=== PATIENT | male | born 1970 | race Caucasian/White ===

== ENCOUNTER 2024-05-06 14:30 | Emergency (ER) | payer MEDICAID, SELFPAY ==
--- NOTE | ~2024-05-06 | CT_ITS ---
EXAMINATION: CT chest w IV con, CT abdomen pelvis w IV con CLINICAL INFORMATION: fall chest trauma abd trauma fall elevated bili COMPARISON: No pertinent prior studies are available for comparison. TECHNIQUE: Multidetector volumetric imaging was performed through the chest, abdomen and pelvis following the administration of 85 mL of Omnipaque 350 intravenous contrast. Sagittal and coronal reformatted images were obtained on the technologist's workstation. Axial MIP volume rendering provided. This CT examination was performed using dose optimization techniques as appropriate, variously including the following: * Automated exposure control * Adjustment of mA and/or kV according to patient size (this includes techniques or standardized protocols for targeted exams where dose is matched to indication/reason for exam; i.e. extremities or head) Use of iterative reconstruction technique DLP: 1280 mGy-cm FINDINGS: CHEST: LUNGS: The central airways are patent. The lungs are clear with no evidence of consolidation. Dependent bibasilar atelectasis. No pleural effusion or pneumothorax. There are no pulmonary parenchymal nodules. MEDIASTINUM: Cardiomegaly without pericardial effusion. Mild coronary arterial calcifications. Central vascular structures are unremarkable. Normal thyroid. No hilar or mediastinal lymphadenopathy. CHEST WALL: No lymphadenopathy. No chest wall mass. Bilateral gynecomastia. ABDOMEN/PELVIS: LIVER, GALLBLADDER, BILIARY TREE: The liver has a nodular contour and is diffusely hypoattenuating relative to spleen. Hepatomegaly measuring up to 21 cm) nuchal dimension. No focal hepatic lesion or biliary ductal dilatation is present. The gallbladder is unremarkable with no evidence of radiopaque gallstones, gallbladder wall thickening, or obvious pericholecystic inflammatory changes. PANCREAS: Normal; no mass or surrounding fluid. SPLEEN: Normal size. No focal lesion. ADRENAL GLANDS: Normal; no mass. KIDNEYS AND URETERS: The kidneys are normal in size, shape, and attenuation. No hydronephrosis, hydroureter, or calculi seen. No perinephric stranding. BLADDER: No focal mass or wall thickening seen. No bladder calculi. PELVIC VISCERA: Normal CT appearance of the prostate and seminal vesicles. GASTROINTESTINAL TRACT: Small hiatal hernia. The small and large bowel are nondilated. Normal appendix. PERITONEAL SPACE: No significant free air or free fluid identified. ABDOMINAL WALL: No significant hernia is appreciated. LYMPHOVASCULAR STRUCTURES: Lymph nodes: Normal. Vascular: The aorta is normal in caliber. OSSEOUS STRUCTURES: No acute or suspicious osseous abnormality. Mild multilevel thoracal lumbar spondylosis. CT/CT abdomen pelvis w IV con IMPRESSION: 1. No acute traumatic injury to the chest, abdomen or pelvis. 2. Hepatomegaly with nodular contour and hypoattenuating liver. These findings taken together suggestive of infiltrative hepatocellular disease such as cirrhosis and/or steatosis.
--- NOTE | ~2024-05-06 | XR_ITS ---
EXAMINATION: XR ELBOW, RIGHT CLINICAL INFORMATION: Right elbow pain. COMPARISON: None available. TECHNIQUE: AP, lateral, and oblique views of the right elbow. FINDINGS: The study is somewhat limited, as no true lateral view is submitted. The bones and soft tissues appear grossly. No fracture or gross joint effusion appreciated. Alignment is anatomic. Joint spaces appear maintained. XR/XR elbow RT 2V IMPRESSION: No acute finding.
--- NOTE | ~2024-05-06 | CT_ITS ---
EXAMINATION: CT HEAD WITHOUT CONTRAST CLINICAL INFORMATION: Fall head strike COMPARISON: MRI brain from 06/09/2014 TECHNIQUE: Contiguous axial imaging was performed from the skull base to vertex without intravenous administration of contrast. This CT examination was performed using dose optimization techniques as appropriate, variously including the following: *Automated exposure control *Adjustment of mA and/or kV according to patient size (this includes techniques or standardized protocols for targeted exams where dose is matched to indication/reason for exam; i.e. extremities or head) *Use of iterative reconstruction technique DLP: 742.18 mGy-cm FINDINGS: There is no evidence of acute intracranial hemorrhage or territorial infarction. No abnormal mass effect or midline shift is seen. Feng to white matter differentiation is well preserved. No extra-axial fluid collections are identified. The ventricles are normal in size. There is no abnormal attenuation within the brain parenchyma. The osseous structures and soft tissues are normal. The mastoid air cells and visualized portions of the paranasal sinuses are well aerated. CT/CT cervical spine wo IV con IMPRESSION: No acute intracranial pathology. EXAMINATION: Noncontrast CT scan of the cervical spine. INDICATION: Neck pain COMPARISON: None. TECHNIQUE: Helical, multidetector axial images were obtained from the occiput to the upper thorax. Coronal and sagittal reformats of the cervical spine were provided for interpretation. DLP: 596.7 mGy-cm FINDINGS: No acute fractures or dislocations of the cervical spine are seen. Straightening with slight reversal of the normal cervical curvature. Multilevel degenerative changes. Anatomic alignment and positioning of the vertebral bodies and posterior elements is noted. The atlantoaxial joint and craniovertebral articulations are normal without evidence of subluxation. There is no prevertebral soft tissue swelling. The thyroid gland and visualized portions of the lung apices and mediastinum are unremarkable. IMPRESSION: 1. No acute visible fracture or dislocation. 2. Straightening with slight reversal of the normal cervical curvature. 3. Multilevel degenerative changes.
[2024-05-06 14:34] VITALS: BP 131/84; PULSE 92; O2SAT 94
[2024-05-06 14:44] VITALS: BP 144/81; PULSE 88; RESP 16; TEMP 36.8; O2SAT 94; BMI 38.7
[2024-05-06 15:09] LABS: MANUAL DIFF FLAG NO
[2024-05-06 15:13] LABS: Appearance Urine Clear; Color Urine Yellow; Glucose Urine UA Negative (Negative); Leukocyte Esterase Urine Negative (Negative); Nitrite Urine Negative (Negative); Specific Gravity - Urine <= 1.005 (1.005-1.025); Urine Blood Negative (Negative); Urine Ketones Negative (Negative); Urine Protein Negative (Neg-Trace)
[2024-05-06 15:14] LABS: Basophils Absolute Auto 0.1 X10*3/uL (0.0-0.2); Basophils Percent Auto 0.5 % (0-2); Eosinophils Absolute Auto 0.1 X10*3/uL (0.0-0.4); Eosinophils Percent Auto 1.4 % (0-4); Hematocrit 44.5 % (42.0-52.0); Hemoglobin 15.4 g/dl (14.0-18.0); Imm Gran Abs Auto 0.03 X10*3/uL (0.00-0.03); Imm Gran Pct Auto 0.3 % (0.0-0.4); Lymphocytes Absolute Auto 2.7 X10*3/uL (1.2-4.9); Lymphocytes Percent Auto 27.1 % (20-40); Mean Corpuscular HGB Conc 34.6 g/dl (31.0-36.0); Mean Corpuscular Hemoglobin 29.3 pg (27.0-33.0); Mean Corpuscular Volume 84.6 fL (80.0-98.0); Monocytes Absolute Auto 0.7 X10*3/uL (0.1-1.2); Neutrophils Absolute Auto 6.3 x10*3/uL (2.0-8.3); Neutrophils Percent Auto 63.7 % (45-73); Platelet Count 278 X10*3/uL (160-400); Red Blood Count 5.26 X10*6/uL (4.60-5.80); Red Cell Distribution Width 14.3 % (11.0-16.0)
[2024-05-06 15:16] LABS: Prothrombin Time 12.6 SEC (11.1-13.3)
[2024-05-06 15:27] LABS: Amphetamine Screen Urine Not Detected (Not Detect); Barbiturates, Urine Not Detected (Not Detect); Benzodiazepines Screen Urine Not Detected (Not Detect); Buprenorphine Scr Not Detected (Not Detect); Cannabinoid Screen Urine Not Detected (Not Detect); Cocaine Screen Urine Not Detected (Not Detect); Fentanyl, urine Not Detected (Not Detect); Methadone Screen, Urine Not Detected (Not Detect); Opiate Screen Urine Not Detected (Not Detect); Oxycodone Screen Urine Not Detected (Not Detect); Phencyclidine Screen Urine Not Detected (Not Detect)
[2024-05-06 15:29] LABS: Ethanol 306 mg/dL
[2024-05-06 15:34] LABS: Alanine Aminotransferase 29 U/L (0-40); Albumin Level 4.4 g/dL (3.5-5.0); Alkaline Phosphatase 83 U/L (39-117); Anion Gap 20 (12-20); Aspartate Amino Transferase 46 U/L (5-37); Bilirubin Total 2.3 mg/dL (0.0-1.0); Blood Urea Nitrogen 8 mg/dL (9-16); Calcium 9.6 mg/dL (8.4-10.2); Carbon Dioxide 22 mmol/L (22-29); Chloride 105 mmol/L (96-108); Creatinine Clr Calc Pharmacy 142.2; Estimated Glomerular Filt Rate > 60; Glucose Random 108 mg/dL (60-115); Potassium 3.2 mmol/L (3.3-5.1); Sodium 144 mmol/L (135-145); Total Protein 7.5 g/dL (6.5-8.0)
--- NOTE | 2024-05-06 15:50 | PC.NURSE ---
RN heard pt attempting to remove c-collar. educated in importance of maintaining c-collar placement until eval'd by provider.
--- NOTE | 2024-05-06 16:15 | PC.NURSE ---
pt found with c-collar off in bed, pt refused to have c-collar placed back on.
[2024-05-06 17:15] LABS: Magnesium 1.8 mg/dL (1.6-2.6)
--- NOTE | 2024-05-06 17:17 | ED_ITS ---
HPI - Fall General Chief Complaint: Fall Stated Complaint: FALL,ELBOW LAC,ETOH INTOX PER EMS Time Seen by Provider: 05/06/24 16:58 Source: patient Mode of arrival: ambulatory Limitations: no limitations History of Present Illness ED Provider: Jeanie CRONIN HPI Narrative: 54-year-old male history of alcohol abuse, frequent falls secondary to alcohol abuse presenting to the emergency department with alcohol intoxication and fall, unclear history however patient tells me he has been drinking multiple pt of vodka per day last drink was just prior to arrival. He fell today initially said he hit his head now he states he does not think he did. He is not on blood thinners. Patient reports he also hit his right elbow and has a scrape on his elbow. Unclear if tetanus status. Patient reports he just feels overall unwell and tired. He would like to go home. No SI or HI. Not interested in detox. Denies chest pain, shortness of breath, nausea, vomiting, abdominal pain, headache, vision changes, dizziness and weakness GCS-15 NIHSS- 0 Related Data Allergies Allergy/AdvReac Type Severity Reaction Status Date / Time No Known Allergies Allergy Verified 05/06/24 14:46 [No Known Allergies*] Review of Systems 2 Review of Systems: Yes all other systems are reviewed and are negative PMFSH Past Medical History Attestation statement: The following information was validated with the patient. Source: old records reviewed and nursing notes reviewed Social History Social History Advance Directives: No Physical Exam 2 Vital Signs: Vital Signs: Last Vital Signs Temp 98.1 F 05/06/24 19:03 Pulse 78 05/06/24 19:03 Resp 18 05/06/24 19:03 BP 135/69 05/06/24 19:03 Pulse Ox 96 05/06/24 19:03 O2 Del Method Room Air 05/06/24 19:03 BMI result Body Mass Index 38.7 vss Appearance: Alert.? Oriented X3.? No acute distress.? Head: Normocephalic, atraumatic, no step-offs or deformities Eyes: Pupils equal, round and reactive to light.? ENT: Pharynx normal.? Neck: Normal inspection.? Neck supple.? CVS: Normal heart rate and rhythm.? Pulses normal.? Respiratory: No respiratory distress.? Breath sounds normal.? Abdomen: Soft and nontender.? Skin: Skin warm and dry.? Normal skin color.? Normal skin turgor.? + abrasion overlying right elbow. Full range of motion to the elbow. No wrist drop bilaterally. Normal sensation distally. Normal capillary refill less than 2 seconds. Extremities: No lower extremity edema.? No calf ttp. 5/5 strength to bilateral upper and lower extremities Back: No midline tenderness, no C-spine tenderness, full range of motion, no CVA tenderness bilaterally Neuro: Oriented X 3.? No motor deficit.? No sensory deficit. CN 2-12 intact Course Reevaluation(s) Reevaluation #1: CBC unremarkable. Chemistry with low potassium 3.2 oral potassium ordered. Normal magnesium. Total bilirubin 2.3, no abdominal tenderness on palpation, this could be secondary to chronic alcohol abuse. Slightly elevated AST again likely secondary to alcohol abuse. Total CPK 996, IV fluids ordered. Will repeat this value. UA negative. Urine toxicology negative. Ethanol level 306. X-ray of right elbow no acute findings. CT chest with no acute traumatic injury to chest, abdomen or pelvis. Hepatomegaly with nodular contour and hypoattenuating liver these findings are concerning for infiltrative hepatocellular disease such as cirrhosis and or steatosis. Patient will be made aware of these findings. CT head with no acute intracranial pathology. CT cervical spine no acute fracture dislocations. Straightening with slight reversal of normal cervical lordosis. Multilevel degenerative changes. Repeat CPK pending Time: 20:29 Reevaluation #2: Repeat CPK improved at 142 after few L of fluids, no renal failure. No indication for hospital admission. Will give another L fluids. No indication for repeat CPK encouraged p.o. hydration. At this time patient to be placed into observation to allow more time to be evaluated by care team for possible detox opportunities. At time observation was started patient common cooperative no acute distress will continue to monitor. Time: 22:29 Medications Administered Discontinued Medications Generic Name Dose Route Start Last Admin Trade Name Freq PRN Reason Stop Dose Admin Bacitracin 1 appl 05/06/24 17:05 05/06/24 18:08 Bacitracin Oint 0.9 Gm Packet TOPICAL 05/06/24 17:06 1 appl ONCE ONE Administration Protocol Diphtheria/Tetanus/Acell Pertussis 0.5 ml 05/06/24 17:05 05/06/24 17:25 Diphth,Pertus(Acell),Tet Adult 0.5 Ml Syringe IM 05/06/24 17:06 Not Given .ONCE ONE Sodium Chloride 1,000 mls @ 999 mls/hr 05/06/24 18:15 05/06/24 21:00 Ns IV 05/06/24 19:15 Infused .Q1H1M CHEO Infusion Sodium Chloride 1,000 mls @ 999 mls/hr 05/06/24 20:30 05/06/24 21:31 Ns IV 05/06/24 21:30 999 mls/hr .Q1H1M CHEO Administration Iohexol 100 ml 05/06/24 18:39 05/06/24 18:39 Iohexol 350 Mg/Ml 100 Ml Infus..Btl IV 05/06/24 18:40 85 ml ONCE ONE Administration Potassium Chloride 20 meq 05/06/24 20:29 05/06/24 21:37 Potassium Chloride Er 20 Meq Tab.Er.Prt PO 05/06/24 20:30 20 meq ONCE ONE Administration Medical Decision Making Medical Decision Making [facility] Narrative: 1700 54 yo m presents w/ ETOH & fall [employer]IVE drinking few pints of vodka. PE + abrasion overlying right elbow. Full range of motion to the elbow. No wrist drop bilaterally. Normal sensation distally. Normal capillary refill less than 2 seconds. A&O X 4. History and physical exam concerning for alcohol intoxication with fall. No signs of active withdrawal. Will rule out metabolic derangements. Will rule out traumatic injury to head and neck. Unlikely trauma to chest, abd or pelvis. NIHSS-0 , GCS-15 Plan- labs, imaging, utox, sow Differential Diagnosis Differential Diagnoses: The differential diagnosis associated with the presentation includes History and physical exam concerning for alcohol intoxication with fall. No signs of active withdrawal. Will rule out metabolic derangements. Will rule out traumatic injury to head and neck. Unlikely trauma to chest, abd or pelvis. Admission/Observation Consideration of admission/observation: Escalation of care including admission/observation considered Lab Data [facility] Lab Attestation statement: I reviewed the patient's lab results. 05/06/24 15:04 05/06/24 22:03 Labs: Lab Results 05/06/24 05/06/24 Range/Units 15:04 22:03 WBC 10.0 (4.8-10.8) X10*3/uL RBC 5.26 (4.60-5.80) X10*6/uL Hgb 15.4 (14.0-18.0) g/dl Hct 44.5 (42.0-52.0) % MCV 84.6 (80.0-98.0) fL MCH 29.3 (27.0-33.0) pg MCHC 34.6 (31.0-36.0) g/dl RDW 14.3 (11.0-16.0) % Plt Count 278 (160-400) X10*3/uL MPV 9.0 L (9.4-12.4) fL Immature Gran % (Auto) 0.3 (0.0-0.4) % Neut % (Auto) 63.7 (45-73) % Lymph % (Auto) 27.1 (20-40) % Thomas % (Auto) 7.0 (2-11) % Eos % (Auto) 1.4 (0-4) % Baso % (Auto) 0.5 (0-2) % Lymph # (Auto) 2.7 (1.2-4.9) X10*3/uL Thomas # (Auto) 0.7 (0.1-1.2) X10*3/uL Eos # (Auto) 0.1 (0.0-0.4) X10*3/uL Baso # (Auto) 0.1 (0.0-0.2) X10*3/uL Abs Immat Gran (auto) 0.03 (0.00-0.03) X10*3/uL Absolute Neuts (auto) 6.3 (2.0-8.3) x10*3/uL Absolute Nucleated RBC 0.000 (0.0-0.012) X10*3/uL Nucleated RBC % (auto) 0.0 (0.0-0.2) /100WBC PT 12.6 (11.1-13.3) SEC INR 1.0 (0.9-1.1) Sodium 144 145 (135-145) mmol/L Potassium 3.2 L 3.5 (3.3-5.1) mmol/L Chloride 105 108 (96-108) mmol/L Carbon Dioxide 22 22 (22-29) mmol/L Anion Gap 20 19 (12-20) BUN 8 L 6 L (9-16) mg/dL Creatinine 0.77 0.74 (0.5-1.4) mg/dL Estim Creat Clear Calc 142.2 148.0 Estimated GFR > 60 > 60 Random Glucose 108 92 (60-115) mg/dL Calcium 9.6 8.6 D (8.4-10.2) mg/dL Magnesium 1.8 (1.6-2.6) mg/dL Total Bilirubin 2.3 H (0.0-1.0) mg/dL AST 46 H (5-37) U/L ALT 29 (0-40) U/L Alkaline Phosphatase 83 (39-117) U/L Total Creatine Kinase 996 H 842 H (38-174) U/L Total Protein 7.5 (6.5-8.0) g/dL Albumin 4.4 (3.5-5.0) g/dL Urine Color Yellow Urine Appearance Clear Urine pH 6.0 (5.0-9.0) Ur Specific [place] <= 1.005 (1.005-1.025) Urine Protein Negative (Neg-Trace) mg/dL Urine Glucose (UA) Negative (Negative) mg/dL Urine Ketones Negative (Negative) mg/dL Urine Blood Negative (Negative) Urine Nitrite Negative (Negative) Ur Leukocyte Esterase Negative (Negative) Urine Opiates Screen Not Detected (Not Detect) Ur Buprenorphine Scrn Not Detected (Not Detect) ng/mL Ur Oxycodone Screen Not Detected (Not Detect) ng/mL Urine Methadone Screen Not Detected (Not Detect) ng/mL Urine Fentanyl Screen Not Detected (Not Detect) Ur Barbiturates Screen Not Detected (Not Detect) Ur Phencyclidine Scrn Not Detected (Not Detect) Ur Amphetamines Screen Not Detected (Not Detect) U Benzodiazepines Scrn Not Detected (Not Detect) Urine Cocaine Screen Not Detected (Not Detect) U Marijuana (THC) Screen Not Detected (Not Detect) Ethyl Alcohol 306 H* mg/dL Independent Interpretation I performed an independent interpretation of an: EKG and CT Scan Radiology Impression Discussion of test interpretation with radiology: I have reviewed the radiologist's reading. Critical Care Time Critical Care Time Critical Care Time: Yes Total Critical Care Time: 35 Attestation: I attest to this time spent taking care of the patient, obtaining history, physical, reviewing labs, imaging, speaking to my attending, specialist or hospitalist. Discharge Plan Discharge Clinical Impression: Fall, Rhabdomyolysis, Alcohol abuse, Hypokalemia, Liver disease Patient Disposition: Home, Self-Care Instructions: Liver Disease Diet (DC), Hypokalemia (ED), Rhabdomyolysis (ED), Abuse of Alcohol (DC), Liver Resection (DC), Fall Prevention (ED) Additional Instructions: Take your medications as prescribed. If you were prescribed antibiotics today, it is important that you take your medication to their entirety, do not skip any doses, do not finish them early. Follow-up with your primary care provider this week. Return to the emergency department with new or worsening symptoms. Such as fevers, chills, chest pain, shortness of breath, nausea, vomiting, dizziness, headache, vision changes, lethargy In case of emergency call 911 XR/XR elbow RT 2V IMPRESSION: No acute finding. CT/CT chest , abd/pelvis w IV con IMPRESSION: 1. No acute traumatic injury to the chest, abdomen or pelvis. 2. Hepatomegaly with nodular contour and hypoattenuating liver. These findings taken together suggestive of infiltrative hepatocellular disease such as cirrhosis and/or steatosis. CT/CT head/brain & cervical spine wo IV con IMPRESSION: No acute intracranial pathology. IMPRESSION: 1. No acute visible fracture or dislocation. 2. Straightening with slight reversal of the normal cervical curvature. 3. Multilevel degenerative changes. Referrals: [facility] [place] [facility] [Provider Group] - 1 day Melo Armendariz MD [Primary Care Provider] - 2 days Print Language: Turkish
[2024-05-06 17:55] VITALS: BP 135/69; PULSE 78; RESP 18; TEMP 36.7; O2SAT 96
[2024-05-06] MEDS: Bacitracin Oint 0.9 GM PACKET 1 APPL TOPICAL (18:08)
[2024-05-06] MEDS: iohexoL 350 MG/ML 100 ML INFUS..BTL IV (18:39)
[2024-05-06] MEDS: 0.9 % Sodium Chloride 1,000 ML 999 ML IV ×3 (18:46→23:00)
[2024-05-06 19:03] VITALS: BP 135/69; PULSE 78; RESP 18; TEMP 36.7; O2SAT 96
[2024-05-06] MEDS: Potassium Chloride ER 20 MEQ TAB.ER.PRT PO (21:37)
[2024-05-06 22:25] LABS: Anion Gap 19 (12-20); Blood Urea Nitrogen 6 mg/dL (9-16); Calcium 8.6 mg/dL (8.4-10.2); Carbon Dioxide 22 mmol/L (22-29); Chloride 108 mmol/L (96-108); Estimated Glomerular Filt Rate > 60; Glucose Random 92 mg/dL (60-115); Potassium 3.5 mmol/L (3.3-5.1); Sodium 145 mmol/L (135-145)
[2024-05-06 22:48] VITALS: BP 140/73; PULSE 67; RESP 15; TEMP 36.6; O2SAT 95
[2024-05-06] MEDS: LORazepam 1 MG TABLET 2 MG PO (23:00)
[2024-05-07 02:46] VITALS: BP 137/70; PULSE 86; RESP 16; TEMP 36.6; O2SAT 97
[2024-05-07] MEDS: Omeprazole 40 MG CAPSULE.DR PO (06:43)
[2024-05-07 06:44] VITALS: BP 156/78; PULSE 76; RESP 16; TEMP 36.7; O2SAT 96
[2024-05-07 07:09] VITALS: BP 104/74; PULSE 80; RESP 16; TEMP 36.7; O2SAT 98
== END 2024-05-07 07:10 | disposition home or self-care (01) ==
PROVIDERS: Physician Assistant; Emergency Provider Emergency Medicine; PCP Internal Medicine
DX: F10.10 Alcohol abuse, uncomplicated (principal); Y90.8 Blood alcohol level of 240 mg/100 ml or more; M62.82 Rhabdomyolysis; E87.6 Hypokalemia; K76.9 Liver disease, unspecified; S50.311A Abrasion of right elbow, initial encounter; W19.XXXA Unspecified fall, initial encounter; R29.6 Repeated falls; Z91.81 History of falling; Y93.9 Activity, unspecified; Y92.9 Unspecified place or not applicable; Y99.9 Unspecified external cause status
CPT/HCPCS: 36415; 70450; 71260; 72125; 73070; 74177; 80048; 80053; 80307; 81003; 82550; 83735; 85025; 85610; 90471; 96360; 96361; 99285; Q9967